=== PATIENT | female | born 1940 | race Caucasian/White ===

== ENCOUNTER → 2019-06-19 | Outpatient (CLI) | payer OTHER | LOC: SJCVC 11:25 | DX: R00.2 Palpitations (principal); I49.8 Other specified cardiac arrhythmias; E06.3 Autoimmune thyroiditis; G43.709 Chronic migraine without aura, not intractable, without status migrainosus; M19.90 Unspecified osteoarthritis, unspecified site; K21.9 Gastro-esophageal reflux disease without esophagitis; Z88.8 Allergy status to other drugs, medicaments and biological substances; Z79.899 Other long term (current) drug therapy ==

== ENCOUNTER → 2019-07-01 | Outpatient (CLI) | payer OTHER | LOC: SJCVCIMAG 10:19 | DX: I10 Essential (primary) hypertension (principal); E06.3 Autoimmune thyroiditis ==

== ENCOUNTER 2019-09-15 04:32 | Inpatient (IN) | payer OTHER ==
[~2019-09-15] VITALS: Ht 172.7 cm; Wt 111.7 kg
[2019-09-15 04:48] VITALS: BP 132/110
[2019-09-15 05:15] LABS: HEMATOCRIT 40.1 % (37.0-47.0); HEMOGLOBIN 13.3 gm/dL (12.0-15.0); MCH 31.4 pg (26.0-34.0); MCHC 33.1 g/dL (28.0-37.0); PLATELET COUNT 248 thou/uL (150-400); RBC 4.22 mil/uL (4.20-5.00); RDW 14.2 % (10.5-14.5); WBC 6.2 thou/uL (4.0-11.0)
[2019-09-15 05:31] LABS: ALBUMIN 2.5 g/dL (3.4-5.0); BUN 35 mg/dL (7-18); CALCIUM 9.4 mg/dL (8.5-10.1); CHLORIDE 87 mmol/L (98-107); CREATININE 0.8 mg/dL (0.6-1.0); GLUCOSE 92 mg/dL (74-106); SGOT 26 U/L (15-37); SGPT 14 U/L (30-65); SODIUM 140 mmol/L (136-145); TOTAL BILIRUBIN 0.5 mg/dL (<0.1-1.0); TOTAL PROTEIN 6.7 g/dL (6.4-8.2); TROPONIN-I <0.06 ng/mL (<0.06)
[2019-09-15 05:32] LABS: POTASSIUM 2.6 mmol/L (3.5-5.1)
[2019-09-15 05:33] LABS: CO2 > 45 mmol/L (21-32)
[2019-09-15 06:08] LABS: HCO3 55.1 mmol/L (22.0-26.0); PCO2 71.3 mmHg (35.0-45.0); PO2 101.1 mmHg (80.0-100.0); pH 7.506 (7.360-7.450); sO2 97.8 % (92.0-98.0)
[2019-09-15] MEDS ORDERED: IPRAT-ALBUT 0.5-3 ML INH (06:24)
[2019-09-15] MEDS ORDERED: KLOR-CON 10 ER10 MEQ PO (06:24)
[2019-09-15] MEDS ORDERED: [UNRECOGNIZED DRUG - OTHER] TOP (06:25)
[2019-09-15] MEDS ORDERED: KETOCONAZOLE15 GM TOP (06:26)
[2019-09-15] MEDS ORDERED: MUPIROCIN22 GM TOP (06:27)
[2019-09-15 07:17] LABS: ABSOLUTE NEUTROPHILS 2.6 thou/uL (1.4-8.2); METAMYELOCYTES 1 %; PROMYELOCYTES 1 %
--- NOTE | 2019-09-15 07:38 | NUR ---
SPOKE WITH PT'S TOAN LEHMAN AND UPDATED HIM ON PT STATUS
[2019-09-15 07:39] VITALS: BP 137/53
[2019-09-15 08:07] VITALS: BP 130/60
[2019-09-15 09:00] VITALS: BP 120/65
--- NOTE | 2019-09-15 11:26 | NUR ---
Patient admits from [facility]. She resides on 3rd floor with nursing assistance for all adls. Patient usu in wc and A/Ox2-3 per [facility]. She wears oxygen at facility usu at 2 liters. Sp with nephew and updated. Plan return to [facility] once stable. Updated facility.
[2019-09-15] MEDS ORDERED: KRISTALOSE20 GM PO (13:42)
[2019-09-15] MEDS ORDERED: RISPERDAL0.5 MG PO ×3 (13:42→13:47)
[2019-09-15] MEDS ORDERED: SERTRALINE HCL100 MG PO (13:44)
[2019-09-15] MEDS ORDERED: DEPAKOTE ER500 M1 PO (13:45)
[2019-09-15] MEDS ORDERED: FUROSEMIDE 40 M40 MG PO (13:48)
[2019-09-15] MEDS ORDERED: EUCERIN CREME57 GM TOP (13:49)
[2019-09-15] MEDS ORDERED: FEXOFENADINE-P1 EACH PO (13:50)
[2019-09-15] MEDS ORDERED: NORVASC 2.5 MG2.5 M1 PO (13:52)
[2019-09-15] MEDS ORDERED: RANITIDINE HCL150 M1 PO (13:54)
[2019-09-15] MEDS ORDERED: OXYBUTYNIN CHLO10 MG PO (13:54)
[2019-09-15] MEDS ORDERED: LOPRESSOR50 MG PO (13:56)
[2019-09-15] MEDS ORDERED: LUMIGAN2.5 M1 (13:57)
[2019-09-15] MEDS ORDERED: DEPAKOTE250 MG PO (14:05)
--- NOTE | 2019-09-15 16:42 | NUR ---
PT CARE ASSUMED APPROX 0900. ASSESSMENTS CHARTED. DENIES PAIN AND SOA. VSS. TOLERATING POC. BREATHING AND RESTING COMFORTABLY WITH O2 6LNC. FACILITY AND ER NURSE SPOKE TO PT'S DPOA REGARDING ADMISSION AND POC. CLINICAL UPDATE RECEIVED FROM LTC NURSE. PT PLEASANTLY CONFUSED. DR PAINTER APPROVED HOLDING BIPAP AT THIS TIME. PT CLINICALLY STABLE. CONFUSED. CLOSE TO NURSING STATION. REPLACED K+ THIS SHIFT AND ALSO DIURESED PT. WILL FOLLOW UP WITH K+ LEVEL. PLACED URINARY CATH WITHOUT ISSUE. NO DISTRESS NOTED.
[2019-09-15 18:12] VITALS: BP 120/65
[2019-09-15 18:38] LABS: BUN 29 mg/dL (7-18); CHLORIDE 92 mmol/L (98-107); CREATININE 0.7 mg/dL (0.6-1.0); GLUCOSE 125 mg/dL (74-106); POTASSIUM 3.5 mmol/L (3.5-5.1); SODIUM 138 mmol/L (136-145)
[2019-09-15 18:43] LABS: CO2 > 45 mmol/L (21-32)
[2019-09-15 19:57] VITALS: BP 111/52
[2019-09-16] VITALS (8 sets, daily range): BP systolic 108–138; BP diastolic 48–71
[2019-09-16 05:43] LABS: HEMATOCRIT 40.1 % (37.0-47.0); HEMOGLOBIN 13.2 gm/dL (12.0-15.0); MCH 31.8 pg (26.0-34.0); MCV 96.4 fL (80.0-100.0); RBC 4.16 mil/uL (4.20-5.00); RDW 14.5 % (10.5-14.5); WBC 6.9 thou/uL (4.0-11.0)
[2019-09-16 06:13] LABS: BUN 24 mg/dL (7-18); CHLORIDE 92 mmol/L (98-107); CREATININE 0.7 mg/dL (0.6-1.0); GLUCOSE 103 mg/dL (74-106); POTASSIUM 3.2 mmol/L (3.5-5.1); SODIUM 139 mmol/L (136-145)
[2019-09-16 06:17] LABS: CO2 > 45 mmol/L (21-32)
--- NOTE | 2019-09-16 07:34 | NUR ---
PATIENT IS VERY PLEASANT.CAN BE CONFUSED AT TIMES.O2 TITRATED DOWN TO 5L NC.RECEIVES BREATHING TREATMENT.MONITOR SHOWS SR.POC CONTINUED.
[2019-09-16 11:49] LABS: BE(vivo) 18.5 mmol/L (-2 to +3); HCO3 46.1 mmol/L (22.0-26.0); PO2 101.6 mmHg (80.0-100.0); sO2 97.6 % (92.0-98.0)
[2019-09-16 11:50] LABS: PCO2 67.9 mmHg (35.0-45.0)
[2019-09-16 13:29] LABS: HEMATOCRIT 40.4 % (37.0-47.0); HEMOGLOBIN 13.4 gm/dL (12.0-15.0); MCH 31.6 pg (26.0-34.0); MCHC 33.1 g/dL (28.0-37.0); MCV 95.4 fL (80.0-100.0); RBC 4.23 mil/uL (4.20-5.00); RDW 14.4 % (10.5-14.5); WBC 7.7 thou/uL (4.0-11.0)
[2019-09-16 13:41] LABS: INR 1.1; PROTIME 11.3 Seconds (9.3-11.4)
--- NOTE | 2019-09-16 15:11 | NUR ---
Updated [facility] with therapy documentation as well. They cont to report they can meet patients needs at [facility].
[2019-09-16 15:21] LABS: APTT 28.6 Seconds (24.5-32.8)
--- NOTE | 2019-09-16 18:49 | NUR ---
PT CARE ASSUMED APPROXIMATELY 0700. PT ASSESSMENTS CHARTED. PT MEDICATION CHARTED. PT aPTT DUE 2029, INITIAL 28.6. PT ORIENTED TO PLACE. BILAT DOPPLER LE PERFORMED. MILD OCCLUSION. PT REQUIRES FREQUENT ADJUSTMENT, SLIDES ONTO RIGHT SIDE.
[2019-09-17 03:39] VITALS: BP 126/61
--- NOTE | 2019-09-17 04:43 | NUR ---
PT AOX 2. VSS. NO FEVER. NO SOB. PT PERIODICALLY DESATS WHEN SLEEPING. O2 MAINTAINED BTWN 3-4 L. DENIES CHEST PAIN. NO EPISODE OF NAUSEA OR VOMITING REPORTED. HEPARIN GTT RUNNING AT 15ML/HR. Q2 TURNS. GIVEN BATH THIS MORNING. NO FURTHER CONERNS AT THIS TIME.
[2019-09-17 04:57] LABS: BUN 17 mg/dL (7-18); CALCIUM 8.6 mg/dL (8.5-10.1); CHLORIDE 91 mmol/L (98-107); CREATININE 0.7 mg/dL (0.6-1.0); GLUCOSE 105 mg/dL (74-106); POTASSIUM 3.4 mmol/L (3.5-5.1); SODIUM 137 mmol/L (136-145)
[2019-09-17 05:20] LABS: HEMATOCRIT 37.1 % (37.0-47.0); HEMOGLOBIN 12.4 gm/dL (12.0-15.0); MCH 32.1 pg (26.0-34.0); MCHC 33.4 g/dL (28.0-37.0); MCV 96.1 fL (80.0-100.0); RBC 3.86 mil/uL (4.20-5.00); RDW 14.3 % (10.5-14.5); WBC 8.2 thou/uL (4.0-11.0)
[2019-09-17 06:31] LABS: CO2 > 45 mmol/L (21-32)
[2019-09-17 08:07] VITALS: BP 145/81
[2019-09-17 11:43] VITALS: BP 149/84
[2019-09-17 15:25] LABS: URINE BILIRUBIN NEGATIVE (Negative); URINE BLOOD 2+ (Negative); URINE CLARITY CLEAR; URINE COLOR YELLOW; URINE GLUCOSE-RANDOM* NEGATIVE (Negative); URINE KETONES NEGATIVE (Negative); URINE LEUKOCYTES NEGATIVE (Negative); URINE NITRITE NEGATIVE (Negative); URINE PROTEIN (DIPSTICK) NEGATIVE (Negative)
[2019-09-17 15:31] LABS: SSA (PROTEIN CONFIRMATORY) NEGATIVE (Negative)
[2019-09-17 15:57] LABS: SQUAMOUS 0-3 Few /LPF (0-3)
[2019-09-17 15:58] LABS: BACTERIA None Seen /HPF (None Seen); CRYSTALS None Seen /LPF (None Seen); URINE RBC 0-2 Rare /HPF (0-2); URINE WBC None Seen /HPF (0-5)
[2019-09-17 16:49] VITALS: BP 151/96
--- NOTE | 2019-09-17 17:04 | NUR ---
PT CARE ASSUMED APPROX 0700. ASSESSMENTS CHARTED. PT DENIES PAIN AND SOA. FREQUENT O2 TITRATIONS AND CHANGE IN LOC COMMUNICATED TO DR HAQ AND KO. CTA CHEST, CT HEAD AND UA COMPLETED. WILL F/U WITH RESULTS. PT TO START BIPAP THIS NIGHT. ORDERS PER MATHEUS. CLINICAL UPDATE GIVEN TO DOMINIK JOYA. TURNING PT Q2 HRS AND PRN. K+ REPLACED. APPETITE FAIR. WILL PASS ON IN REPORT THAT PT MEETS CRITERIA FOR URINARY CATH REMOVAL AND EXTERNAL CATH PLACEMENT. NO DISTRESS NOTED AT THIS TIME. PT TOLERATING POC.
--- NOTE | 2019-09-17 17:06 | NUR ---
PT'S HEP GTT TITRATION DELAYED DUE TO DELAY IN APTT RESULTING. COLLECTED AT 1350 BUT DID RESULT UNTIL 1700. WILL TITRATE GTT BASED ON RESULTS.
[2019-09-17 20:23] VITALS: BP 105/56
[2019-09-18 00:03] VITALS: BP 130/62
--- NOTE | 2019-09-18 03:08 | NUR ---
ASSUMED PT CARE AROUND 1930. AXOX1, PLEASANTLY CONFUSED. HEPARIN DRIP ADJUSTED AND CHARTED. NEW DRAW ORDER PER PROTOCOL. O2 MANAGED CLOSELY BY RT. EARLIER LOW BP AND PULSE NOTED, REPORTED TO ALTA ÁLVAREZ HVAC SALES ENGINEER FOR AND RECIEVED AN ORDER TO HOLD 2100 LOPRESSOR. FREQUENT VISUAL CHECKS FOR NEEDS. NO S/S ACUTE DISTRESS NOTED OR REPORTED AT THIS TIME. WILL CONT TO MONITOR FOR ANY CHANGES IN CONDITION.
[2019-09-18 03:50] VITALS: BP 124/63
[2019-09-18 07:37] LABS: HEMATOCRIT 41.3 % (37.0-47.0); HEMOGLOBIN 13.8 gm/dL (12.0-15.0); MCH 31.8 pg (26.0-34.0); MCHC 33.5 g/dL (28.0-37.0); MCV 95.1 fL (80.0-100.0); RBC 4.35 mil/uL (4.20-5.00); RDW 14.4 % (10.5-14.5); WBC 7.4 thou/uL (4.0-11.0)
[2019-09-18 07:40] VITALS: BP 116/58
[2019-09-18 07:47] LABS: ANION GAP < 0 mmol/L (7-16); BUN 12 mg/dL (7-18); CALCIUM 9.4 mg/dL (8.5-10.1); CHLORIDE 92 mmol/L (98-107); CO2 43 mmol/L (21-32); CREATININE 0.5 mg/dL (0.6-1.0); GLUCOSE 92 mg/dL (74-106); POTASSIUM 3.5 mmol/L (3.5-5.1); SODIUM 134 mmol/L (136-145)
[2019-09-18 12:00] VITALS: BP 117/63
--- NOTE | 2019-09-18 14:02 | NUR ---
FAXED CLINICAL UPDATE TO [facility] SPOKE WITH DAVID IN ADM. SHE RECEIVED UPDATE AND SAID THEY CAN TAKE PT OVER THE WEEKEND IF NEEDED. ALSO THEY CAN SUPPLY PT WITH A BIPAP AT FACILITY IF NEEDED. DP TO FOLLOW.
--- NOTE | 2019-09-18 15:40 | 2DMMODE ---
[facility] [place] [address] 2 D/M-MODE ECHOCARDIOGRAM Name: GAGE CHACON Room #: 216-P ADM IN M.R.#: [id number] Admission: 09/15/19 Attend Phys: Kaden Vaz MD Discharge: Date of : 38 Report #: [id number] THIS REPORT FOR: cc: Mikki Stark,Giorgio Copeland MD [facility] ~ APPROVED REPORT Study performed: 09/18/2019 14:53:17 EXAM: Limited 2D, Doppler, and color-flow Echocardiogram Patient Location: Bedside Room #: 216 Status: routine BSA: 2.25 HR: 62 bpm BP: 117/63 mmHg Rhythm: NSR Other Information Study Quality: Adequate Indications Limited echo. SOB, Acute PE. (Complete echo done 07/01/19) 2D Dimensions RVDd: 37.88 mm LVOT Diam: 20.11 (18-24mm) Aortic Valve AoV Peak Edmundo.: 2.34 m/s AO Peak Gr.: 21.87 mmHg LVOT Max P.25 mmHg AO Mean Gr.: 12.65 mmHg AO V2 Mean: 1.70 m/s LVOT Max V: 1.03 m/s AO V2 VTI: 50.20 cm MERLIN Vmax: 1.40 cm2 Tricuspid Valve TR Peak Edmundo.: 2.80 m/s RAP Estimate: 5.00 mmHg TR Peak Gr.: 31.00 mmHg PA Pressure: 36.00 mmHg Left Ventricle The left ventricle is normal size. There is normal LV segmental wall motion. Left ventricular systolic function is normal. LVEF is [facility] [address] [place] [address] 2 D/M-MODE ECHOCARDIOGRAM Name: GAGE CHACON Room #: 216-P [facility] IN ..#: [id number] Admission: 09/15/19 Attend Phys: Kaden Vaz, Discharge: Date of : 38 Report #: [id number] 60-65%. Right Ventricle The right ventricle is normal size. The right ventricular systolic function is normal. Atria Left atrium is dilated. Right atrium is at the upper limits of normal. Aortic Valve The aortic valve is mildly calcified. Mild aortic regurgitation There is mild valvular aortic stenosis. Calculated aortic valve area is 1.4 cm2 with maximum pressure gradient of 22 mmHg and mean pressure gradient of 13 mmHg. Mitral Valve Moderate mitral annular calcification. There is no mitral valve regurgitation noted. Tricuspid Valve The tricuspid valve is normal in structure. Mild tricuspid regurgitation. Estimated PAP is 35-40mmHg. Great Vessels IVC is normal in size and collapses >50% with inspiration. Pericardium There is no pericardial effusion. <Conclusion> Left ventricular systolic function is normal. There is normal LV segmental wall motion. LVEF is 60-65%. Both atria are dilated. There is mild valvular aortic stenosis, no insufficiency. Calculated aortic valve area is 1.4 cm2 (maximum pressure gradient of 22 mmHg, mean pressure gradient of 13 mmHg). Moderate mitral annular calcification. No mitral valve regurgitation Mild tricuspid regurgitation. Estimated pulmonary artery pressure of [facility] [address] [place] [address] 2 D/M-MODE ECHOCARDIOGRAM Name: INESGAGE Room #: 216-P [facility] IN [facility].#: [id number] Admission: 09/15/19 Attend Phys: Kaden Vaz, Discharge: Date of : 38 Report #: [id number] 35-40mmHg. There is no pericardial effusion. <ELECTRONICALLY SIGNED> By: Giorgio Heller MD, FACC 09/18/19 1539 1539 153 Giorgio Heller MD, FACC /INF
--- NOTE | 2019-09-18 15:53 | NUR ---
ASSUMED CARE PT SHIFT CHANGE. ASSESSMENTS CHARTED. MEDS GIVEN PER AUG. PT ALERT AND ORIENTED TO SELF, PLEASANTLY CONFUSED AT TIMES. O2 SATS WNL ON VENTIMASK 35%, RT SWITCHED PT TO NC 2L, PT TOLERATING WELL, SATS WNL. ECHO ORDERED/COMPLETED THIS SHIFT- REFER TO RESULTS. APPETITE ADEQUATE THROUGHOUT DAY. PT CURRENTLY RESTING IN BED WITH NO APPARENT NEEDS AT THIS TIME. WILL CONTINUE TO MONITOR AND FOLLOW POC.
[2019-09-18 16:00] VITALS: BP 111/66
[2019-09-18 19:16] VITALS: BP 131/60
[2019-09-19] VITALS (7 sets, daily range): BP systolic 105–127; BP diastolic 60–75
--- NOTE | 2019-09-19 04:21 | NUR ---
PT ORIENTED TO SELF. PLEASANTLY CONFUSED. UNABLE TO TOLERATE BIPAP OVERNIGHT. PT PUT ON 2L NC, SATS STABLE. DENIES PAIN. NO CHEST PAIN OR NAUSEA REPORTED. WILL CONTINUE TO MONITOR.
[2019-09-19 05:22] LABS: HEMATOCRIT 37.2 % (37.0-47.0); HEMOGLOBIN 12.6 gm/dL (12.0-15.0); MCH 31.9 pg (26.0-34.0); MCHC 33.7 g/dL (28.0-37.0); MCV 94.5 fL (80.0-100.0); RBC 3.94 mil/uL (4.20-5.00); RDW 14.4 % (10.5-14.5); WBC 8.6 thou/uL (4.0-11.0)
[2019-09-19 05:28] LABS: CALCIUM 8.7 mg/dL (8.5-10.1); CREATININE 0.5 mg/dL (0.6-1.0); POTASSIUM 3.2 mmol/L (3.5-5.1)
--- NOTE | 2019-09-19 12:24 | EKG ---
[facility] [place] [address] ELECTROCARDIOGRAM REPORT Name: GAGE CHACON Room #: 216-P ADM IN M.R.#: [id number] Admission: 09/15/19 Attend Phys: Kaden Vaz MD Discharge: Date of : 38 Report #: [id number] THIS REPORT FOR: cc: Mikki Stark,Mikki Mendez,Giorgio Diaz MD [facility] ~ THIS REPORT FOR: //name// [facility] Test Date: 2019-09-15 Test Time: 15:50:15 Pat Name: GAGE CHACON Department: Room: 216 P Gender: F Designer/Writer: Carlos GARRISON : 1940 Requested By: Candice Silva Order Number: [id number] MD: Giorgio Heller Measurements Intervals [place] Rate: 63 P: 68 SD: 187 QRS: -22 QRSD: 121 T: -25 QT: 468 QTc: 480 Interpretive Statements Sinus rhythm Abnormal T, consider ischemia, anterior leads No previous ECG available for comparison Electronically Signed On 09-16-2019 7:55:55 CDT by Giorgio Heller [email or web address] <ELECTRONICALLY SIGNED> By: Giorgio Heller MD, FAC 09/16/19 0755 1550 1550 Giorgio Heller MD, [facility] /EPI
--- NOTE | 2019-09-19 14:43 | NUR ---
Possible dc back to [facility] shelter care this weekend. Pt did not tolerate bipap but will b on 2liters of O2. She is being switched from heprin gtt to eloquis. Nephew and admissions at [facility] updated. Both agreeable to dc over the weekend if ready. Weekend nurse will need to call [facility] with report and fax orders as well as notify her nephew of dc. Transport can be arranged and vouchered by through [employer] for stretcher. Chart copy to be sent with the pt. OP [phone], fax [phone] [employer] [phone]
--- NOTE | 2019-09-19 18:46 | NUR ---
PT CARE ASSUMED APPROXIMATELY 0700. PT ASSESSMENTS CHARTED. PT MEDICATION CHARTED. PT HEPARIN D/C'D AT 1240 AFTER APIXIBAN 1140. VSS. PT DENIES PAIN.
[2019-09-20 04:45] VITALS: BP 123/61
--- NOTE | 2019-09-20 06:17 | NUR ---
ASSESSMENTS CHARTED, MEDS GIVEN CHARTED. PATIENT RESTING IN BED DURING SHIFT. BRAVO IN PLACE AND PATENT. ALERT TO SELF, SINUS RHYTHM SINUS GRAY ON TELEMETRY DURING SHIFT. ON 2 LITERS WHILE AWAKE VIA NASAL CANNULA, DURING SLEEP SHE HAS BEEN ON BIPAP WITH OXYGEN BLEED IN. PATIENT HAS BEEN TURNED CHARTED BY AIDE. DENIED PAIN DURING SHIFT, FALL PRECAUTIONS IN PLACE DURING SHIFT.
[2019-09-20 07:40] VITALS: BP 109/53
[2019-09-20 09:08] LABS: ANION GAP < 0 mmol/L (7-16); BUN 12 mg/dL (7-18); CALCIUM 8.9 mg/dL (8.5-10.1); CHLORIDE 93 mmol/L (98-107); CO2 42 mmol/L (21-32); CREATININE 0.5 mg/dL (0.6-1.0); GLUCOSE 97 mg/dL (74-106); MAGNESIUM 2.1 mg/dL (1.8-2.4); SODIUM 134 mmol/L (136-145)
[2019-09-20 09:18] LABS: POTASSIUM 2.9 mmol/L (3.5-5.1)
--- NOTE | 2019-09-20 09:23 | NUR ---
ASSUMED CARE OF PT AT SHIFT CHANGE, COLD, ROOM AT 65, GAVE HER A WARM BLANKET, CONTACTED PHYSICIAN TO SEE IF I TX YESTERDAYS ELECTROLYTES OR HE'LL ORDER NEW DRAWN, LATTER CHOSEN. CRITICAL K+, FOLLOWED PROTOCOL. PT GIVING ONE WORDS ANSWERS, FINANCIAL ADMINISTRATIVE ASSISTANT REPORTS SPEECH SEEMS INCOMPREHENSIBLE. SHE STATES SHES TIRED. ON BIPAP, REPORTS OF 2L DAY USE. WILL CONTINUE TO MONITOR. ENCOURAGED PT TO USE CALL LIGHT FOR NEEDS AND WARMED UP ROOM.
[2019-09-20 12:00] VITALS: BP 128/62
[2019-09-20 16:30] VITALS: BP 112/63
[2019-09-20 17:04] LABS: CALCIUM 8.9 mg/dL (8.5-10.1); CREATININE 0.5 mg/dL (0.6-1.0); POTASSIUM 3.2 mmol/L (3.5-5.1)
[2019-09-20 19:38] VITALS: BP 106/54
[2019-09-21 01:12] LABS: CALCIUM 8.8 mg/dL (8.5-10.1); CREATININE 0.5 mg/dL (0.6-1.0); POTASSIUM 3.4 mmol/L (3.5-5.1)
[2019-09-21 05:07] VITALS: BP 123/65
[2019-09-21 07:30] VITALS: BP 114/55
--- NOTE | 2019-09-21 08:11 | NUR ---
ASSUME CARE 1900. PT/VITALS STABLE. DENIES ANY PAIN. POOR TOLERANCE TO ACTIVITY. PT IS NON AMBULATORY. NO DISTRESS NOTED DURING SHIFT. ADEQUATE REST. A/O X 4. ASSESSMENT CHARTED. PROGRESSING WELL WITH POC. SR/SB ON MONITOR. PLAN IS TO CONTINUE WITH APIXABAN BID FOR PE/DVT. WILL CONTINUE TO MONITOR AND FOLLOW WITH POC
[2019-09-21 11:30] VITALS: BP 114/49
[2019-09-21 16:30] VITALS: BP 107/65
[2019-09-21 19:53] VITALS: BP 100/57
--- NOTE | 2019-09-21 20:45 | NUR ---
RECEIVED PT'S CARE AROUND 0740; PT. ON BED; RESTING WITH EYES CLOSED; O2 SAT ABOVE 97%; DURING AM ASSESSMENT PT. ALERT TO PERSON, SITUATION, TIME NOT PLACE; NO C/O PAIN; AM MEDICATION GIVEN; C/O ABDOMINAL DISCOMFORT DUE TO NOT ABLE TO HAVE A BM; PHYSICIAN NOTIFIED; ORDERS ON PLACE; MIRALAX GIVEN; PT. ABLE TO HAVE LARGE BM DURING THE AFTERNOON; PASSING GAS; TURNED FROM SIDE TO SIDE THROUGH THE DAY; IV D/C X2; IV TEAM STARTED NEW IV; D/C BRAVO AT 1410; PT. ABLE TO VOID 150 ML; PASSED ON REPORT; ASSESSMENT CHARGED; FOLLOWING POC; PASSED ON REPORT;
[2019-09-22 04:28] VITALS: BP 129/55
--- NOTE | 2019-09-22 04:50 | NUR ---
PT LYING IN BED. TURNING FOR COMFORT. DENIES PAIN. INCONTINENT. VERY RESTFUL NIGHT. CALL LIGHT WITHIN REACH. FREQUENT OBSERVATION. POSSIBLE RETURN TO [facility] 09/21.
[2019-09-22 05:59] LABS: HEMATOCRIT 37.1 % (37.0-47.0); HEMOGLOBIN 12.4 gm/dL (12.0-15.0); MCH 31.9 pg (26.0-34.0); MCHC 33.4 g/dL (28.0-37.0); MCV 95.5 fL (80.0-100.0); RBC 3.89 mil/uL (4.20-5.00); RDW 14.5 % (10.5-14.5); WBC 6.4 thou/uL (4.0-11.0)
[2019-09-22 08:00] VITALS: BP 109/87
[2019-09-22] MEDS ORDERED: ELIQUIS5 MG PO (11:11)
--- NOTE | 2019-09-22 14:21 | NUR ---
ORIENTED TO SELF ONLY. DR. HAQ DISCHARGING BACK TO [facility]. AWAITING OXIMETRY AND TRANSPORTATION ARRANGEMENT. SR PER TELE. TURN Q2. ASSIST FEED. WILL CONTINUE TO FOLLOW CLOSELY.
--- NOTE | 2019-09-22 15:46 | NUR ---
plan for patient to dc today to [facility] with need for oxygen. Rec prescription and RT assessment. Faxed to [facility] with pertinent information. Sp with Tyron at [facility] to alert of dc to [facility] at 1700. Chart copy ordered. Number for report in chart. Sp with control panel operator crude unit to alert of time to tell RN. DC process planner to arrange transport with oxygen and notify family
--- NOTE | 2019-09-22 16:18 | NUR ---
PT DISCHARGING TODAY TO [facility] FAXED DC ORDERS/SUMMARY RECEIVED CONFIRMATION AND ARRANGED TRANSPORT WITH [facility] FOR 1700 TODAY. NOTIFIED PT'S NEPHEW (TOAN) OF DC AND TIME OF TRANSPORT. UNIT NOTIFIED AND CHART COPY PER US. RN TO CALL REPORT TO [phone].
[2019-09-22 17:09] VITALS: BP 129/73
--- NOTE | 2019-09-22 18:05 | NUR ---
INEXPLICABLY, HAS BEEN ORDERED FOR TRANSPORT FOR THIS PATIENT. SHE CANNOT BE TRANSPORTED BY [facility]; MUST HAVE GURNEY FOR THIS BED-BOUND PATIENT. THE NATALIA OF THIS ERRONEOUS IS UNKNOWN TO ME.
[2019-09-22 20:20] VITALS: BP 115/9
--- NOTE | 2019-09-24 07:10 | HC ---
[facility] [place] [address] CONSULTATION Name: GAGE CHACON Room #: 216-[facility] IN M.R.#: [id number] Admission: 09/15/19 Attend Phys: Kaden Vaz MD Discharge: 09/22/19 Date of : 38 Report #: [id number] THIS REPORT FOR: cc: Mikki Stark,Eros Saavedra MD ~ CC: Syed Stark DATE OF SERVICE: 09/16/2019 REASON FOR CONSULTATION: Elevated serum bicarbonate. REASON FOR PRESENTATION: Shortness of breath. HISTORY OF PRESENT ILLNESS: This is a lady with a cognitive impairment was not able to provide me with the details of her history of present illness. She is a DNR patient. She is maintained on oxygen 2 liters at a nursing facility. She was ruled out for COVID-19 infection few days ago; however, she continued to have shortness of breath and nursing facility decided to send her to our hospital for further evaluation and management. On presentation, she was found to have a serum bicarbonate greater than 45 with hypokalemia and a pH of 7.5 and a pCO2 of 71. I am not able to obtain any details from the patient regarding her past medical history. I had reviewed what is available in our medical chart. Unfortunately, there is not much other than what is mentioned in the medical chart. She carries a diagnosis of anxiety, depression, hyperlipidemia, hypertension and bipolar disorder. It does look like that she has cognitive impairments. FAMILY HISTORY: Unobtainable given the patient's current mental status. ALLERGIES: TETANUS TOXOID. SOCIAL HISTORY: She is a care home resident. No other details available. MEDICATIONS: 1. Metoprolol. 2. Depakote. 3. Furosemide. 4. Amlodipine. 5. Risperdal. REVIEW OF SYSTEMS: Unobtainable given the patient's current mental status. PHYSICAL EXAMINATION: [facility] [address] [place] [address] CONSULTATION Name: INESFUNK Room #: 216-[facility] IN M.R.#: [id number] Admission: 09/15/19 Attend Phys: Kaden Vaz MD Discharge: 09/22/19 Date of : 38 Report #: [id number] VITAL SIGNS: Temperature 36.7, pulse rate is 76, respiratory rate is 14, and blood pressure is 124/61. HEAD AND NECK: No jugular venous distention. CHEST: No crackles. CARDIOVASCULAR: No rub detected. ABDOMEN: Soft. EXTREMITIES: Lower extremities, __ stasis changes with very mild edema. LABORATORY DATA: Laboratory values reviewed. pH 7.5, pCO2 of 71. Sodium is 139, potassium 3.2, chloride 92, bicarbonate 45, and creatinine 0.7. ASSESSMENT, IMPRESSION AND PLAN 1. Combined metabolic alkalosis with respiratory compensation for her CO2 retention contributing to the high degree of or the elevation of her carbon dioxide. This is exacerbated by her hypokalemia. Metabolic alkalosis will not resolve until we rectify her potassium. 2. Might use of acetazolamide down the road. 3. She needs her carbon dioxide to be brought down by any means. 4. Discontinue diuretics as this is contributing to her metabolic alkalosis. 5. No further renal recommendations. <ELECTRONICALLY SIGNED> By: Eros Euceda MD 09/24/19 0710 0847 0916 Eros Euceda MD /nt
== END 2019-09-22 22:09 | DRG 175 ==
LOC: ER 04:32 → EROBS 06:01 → 2N 06:01
PROVIDERS: Emergency Medicine Emergency Medical Services; Hospitalist; Internal Medicine Pulmonary Disease; ADMIT Hospitalist
PROC: 5A09357 Assistance with Respiratory Ventilation, Less than 24 Consecutive Hours, Continuous Positive Airway Pressure (ICD-10-PCS; principal; 2019-09-15)
PROC: 5A09357 Assistance with Respiratory Ventilation, Less than 24 Consecutive Hours, Continuous Positive Airway Pressure (ICD-10-PCS; 2019-09-18)
PROC: 5A09357 Assistance with Respiratory Ventilation, Less than 24 Consecutive Hours, Continuous Positive Airway Pressure (ICD-10-PCS; 2019-09-20)
DX: I26.99 Other pulmonary embolism without acute cor pulmonale (principal); J96.22 Acute and chronic respiratory failure with hypercapnia; G93.41 Metabolic encephalopathy; J96.21 Acute and chronic respiratory failure with hypoxia; I82.403 Acute embolism and thrombosis of unspecified deep veins of lower extremity, bilateral; I50.30 Unspecified diastolic (congestive) heart failure; E87.3 Alkalosis; E46 Unspecified protein-calorie malnutrition; Z66 Do not resuscitate; E87.6 Hypokalemia; F31.9 Bipolar disorder, unspecified; K58.9 Irritable bowel syndrome, unspecified; F41.9 Anxiety disorder, unspecified; K57.90 Diverticulosis of intestine, part unspecified, without perforation or abscess without bleeding; K21.9 Gastro-esophageal reflux disease without esophagitis; E78.00 Pure hypercholesterolemia, unspecified; H40.9 Unspecified glaucoma; F03.90 Unspecified dementia, unspecified severity, without behavioral disturbance, psychotic disturbance, mood disturbance, and anxiety; I11.0 Hypertensive heart disease with heart failure; E66.9 Obesity, unspecified; Z20.828 Contact with and (suspected) exposure to other viral communicable diseases; Z88.8 Allergy status to other drugs, medicaments and biological substances; Z99.81 Dependence on supplemental oxygen; Z79.899 Other long term (current) drug therapy; Z68.37 Body mass index [BMI] 37.0-37.9, adult
CPT/HCPCS: 10081

== ENCOUNTER 2020-11-04 19:34 | Inpatient (IN) | payer OTHER ==
[~2020-11-04] VITALS: Ht 152.4 cm; Wt 107.9 kg
[~2020-11-04 19:34] MED LIST: DEPAKOTE ER500 M1 PO; DEPAKOTE250 MG PO; ELIQUIS5 MG PO; EUCERIN CREME57 GM TOP; FEXOFENADINE-P1 EACH PO; FUROSEMIDE 40 M40 MG PO; IPRAT-ALBUT 0.5-3 ML INH; KETOCONAZOLE15 GM TOP; KLOR-CON M2020 MEQ PO; KRISTALOSE20 GM PO; LOPRESSOR50 MG PO; LUMIGAN2.5 M1; MUPIROCIN22 GM TOP; NORVASC 2.5 MG2.5 M1 PO; OXYBUTYNIN CHLO10 MG PO; RANITIDINE HCL150 M1 PO; RISPERDAL0.5 MG PO; SERTRALINE HCL100 MG PO; [UNRECOGNIZED DRUG - OTHER] TOP
[2020-11-04 19:37] VITALS: BP 124/61
[2020-11-04 21:21] LABS: ABSOLUTE NEUTROPHILS 5.8 thou/uL (1.4-8.2); BASOPHILS 0.3 % (0.0-2.0); EOSINOPHILS 1.4 % (0.0-3.0); HEMATOCRIT 33.6 % (37.0-47.0); HEMOGLOBIN 11.5 gm/dL (12.0-15.0); LYMPHOCYTES 25.4 % (24.0-44.0); MCH 32.5 pg (26.0-34.0); MCHC 34.1 g/dL (28.0-37.0); MCV 95.6 fL (80.0-100.0); MONOCYTES 12.6 % (1.0-8.0); PLATELET COUNT 256 thou/uL (150-400); POLYS 60.3 % (36.0-66.0); RBC 3.52 mil/uL (4.20-5.00); RDW 14.6 % (10.5-14.5); WBC 9.6 thou/uL (4.0-11.0)
[2020-11-04 22:11] LABS: CALCIUM 8.5 mg/dL (8.5-10.1); CREATININE 0.8 mg/dL (0.6-1.0); POTASSIUM 4.5 mmol/L (3.5-5.1)
[2020-11-04 22:15] LABS: APTT 26.3 Seconds (24.5-32.8); PROTIME 10.9 Seconds (10.5-12.1)
[2020-11-04 23:16] VITALS: BP 132/66
[2020-11-04] MEDS ORDERED: ELIQUIS5 MG PO (23:39)
[2020-11-04] MEDS ORDERED: DEPAKOTE ER500 M1 PO (23:40)
[2020-11-04] MEDS ORDERED: KRISTALOSE20 GM PO (23:42)
[2020-11-05 07:25] VITALS: BP 127/73
--- NOTE | 2020-11-05 07:47 | NUR ---
PT ADMITTED TO UNIT APPROX 2349. UNABLE TO OBTAIN CONSENTS OR HISTORY. PT SLEEPING, AROUSING WITH CONFUSION AND AGGRESSION. PT DENIES PAIN AND SOB WHILE ON ROOM AIR. PT NPO AT MIDNIGHT. PT INCONTINENT OF BOWEL AND BLADDER, REFUSING REPOSITIONING. SENSATION INTACT, CAPILLARY REFILL LESS THAN 3SEC, AND PERIPHERAL PULSES PALPABLE IN ALL EXTREMITIES. PT ENCOURAGED TO NOTIFY STAFF FOR ALL NEEDS, CALL LIGHT WITHIN REACH, BED ALARM ON, BED LOCKED IN LOWEST POSITION, FREQUENT MONITORING WILL CONTINUE.
--- NOTE | 2020-11-05 14:21 | NUR ---
ASSESSMENT: CM REVIEWED CHART AND SPOKE WITH ATTENDING. PT IS SLEEPING SOUNDLY AND UNABLE TO ANSWER QUESTIONS AT THIS TIME. PT IS FROM [facility]. PT WAS ADMITTED DUE TO DISPLACED FIBULA FX AFTER A FALL. AWAITING ORTHO CONSULT AT THIS TIME TO DETERMINE PLANS. CM SPOKE WITH ATTENDING WHO REPORTS PT MAY REQUIRE SNF PENDING THE PLANS. AWAITING FURTHER RECOMMENDATIONS PT HAS NOT WORKED WITH THERAPY AND AWAITING ORTHO. CM FAXED UPDATED CLINICAL TO [facility] AND LEFT VM WITH DOMINIQUE. CM ALSO SPOKE WITH NEPHEW JACKI JOYA/DOMINIK TO UPDATE. HE IS HOPEFUL SHE WILL BE ABLE TO RETURN TO [facility]. CM WILL CONTINUE TO FOLLOW TO ASSIST NEEDED.
[2020-11-05 15:55] VITALS: BP 147/80
--- NOTE | 2020-11-05 16:48 | NUR ---
Received awake on bed. On nothing per orem for possible surgery today- mouth swabs provided. Vital signs stable. On MS, not on telemetry; no complains and signs of chest pain, crushing sensation and heaviness. Assisted in ADLs. On O2 at 3lpm via nasal cannula. Incontinent of urine and bladder, checked regularly and changed as needed; ext female vázquez in place- output measured and recorded accordingly. Pt turned on her sides regularly, may refuse at times; falls bundle in place. With L Leg fracture- cast in place, able to feel tactile stimulation. With consult to Dr Mccray- called answering service 2x- still a/w call back re: plan for surgery; covid swab done. With SL at R FA- intact. No nausea, no vomiting and no abdominal pain noted. Pt seen and examined by Dr Campos this AM, verified w/him- to keep pt on NPO. Pt's DOMINIK José called at 1211pm- update given, informed him still a/w for ortho surgeon's rounds re: plan of care and will call him for update. Dr Campos informed re: med rec done, for review; pt still on NPO and no IVF prescribed- physician acknowledged but no orders obtained. Followed up with Dr Campos this PM that pt still on NPO and ortho still hasn't seen pt- may have regular diet for dinner then NPO at midnight again; called Dr Mccray's answering service this PM again to f/u- a/w call back. To continue monitoring patient.
[2020-11-05 19:25] VITALS: BP 121/66
--- NOTE | 2020-11-06 02:49 | NUR ---
PT IS A/O X3 AND IS ON BEDREST. VSS AFEBRILE. ROOM AIR. MEDSURG STATUS NO TELE. IS INCONTINENT OF BOWEL AND BLADDER. FEMALE EXTERNAL CATHETER IN PLACE AND DRAINING DARK YELLOW URINE. DRSG TO LEG IS C/D/I AND IS ELEVATED ON PILLOWS. MEDICATIONS GIVEN CRUSED IN APPLE SAUCE. IS CURRENTLY NPO SINCE MIDNIGHT AWAITING PROCEDURE IN THE AM. DRY REDNESS NOTED TO PT FACE AND AROUND MOUTH AREA. SMALL BRUSING NOTED TO RIGHT LOWER LEG THAT APPEARS TO BE ELEVATED. FALL PRECAUTIONS IN PLACE, CALL LIGHT IS WITHIN REACH. WILL CONTINUE TO MONITOR.
[2020-11-06 05:40] VITALS: BP 123/61; BP 174/70
[2020-11-06 08:56] VITALS: BP 134/74
--- NOTE | 2020-11-06 14:41 | NUR ---
ASSUMED CARE OF PT AT 0700 THIS MORNING. PT WAS A/OX3 DURING REPORT. PT HAS HEMO ON RIGHT LOWER LEG WHICH WAS ADDRESSED THIS MORNING TO THE HCP. O2 AT 3L/H WITH O2SAT 94%. LUNGS DEMINISHED, SKIN INTACT WITH REDNESS TO FACE AND ALSO SEVERE REDNESS TO BUTTOCKS. ASSESSMENTS WERE OTHERWISE UNREMARKABLE, VSS, CALL LIGHT AND OTHER NEEDS ARE WITHIN REACN. MEDS AND TX GIVEN NEEDED AND SCHEDULED.
[2020-11-06 15:36] VITALS: BP 130/64
[2020-11-06 19:05] VITALS: BP 120/78
--- NOTE | 2020-11-07 00:35 | NUR ---
PT LYING IN BED. DENIES NEED FOR PAIN MEDICATION. EXTERNAL FEMALE CATH IN PLACE. RESTING COMFORTABLY. FREQUENT OBSERVATION.
[2020-11-07 04:49] VITALS: BP 126/66
[2020-11-07 09:21] VITALS: BP 135/68
[2020-11-07 19:35] VITALS: BP 151/79
--- NOTE | 2020-11-08 02:41 | NUR ---
ASSUMED CARE OF PT AT 1900. PT IS A/O X3 AND IS ON BEDREST. 2.5 LITERS NC. MEDSURG NO TELE. BOOT PLACED TO LEFT LE IS IN PLACE AND ELEVATED ON PILLOW. DENIES C/O PAIN TO LE BUT DOES C/O OF FEELING HOT AND SWEATY. TEMP 99.3 AT START OF SHIFT. PRN TYLENOL PROVIDED. C/O NAUSEA AND STOMACH PAIN. PRN NAUSEA MEDICATION GIVEN DIRECTED. FEMALE EXTERNAL CATHETER IN PLACE AND DRAINING YELLOW/ORANGE URINE WITH A FOUL ODOR. NO BM THIS SHIFT. FALL PRECAUTIONS IN PLACE, CALL LIGHT IS WITHIN REACH. BARRIER CREAM APPLIED TO BOTTOM. PT IN ROOM NEAR NURSES STATION WITH FREQUENT CHECKS. WILL CONTINUE TO MONITOR.
[2020-11-08 03:34] VITALS: BP 148/83
[2020-11-08 07:34] VITALS: BP 151/84
--- NOTE | 2020-11-08 16:44 | NUR ---
RN gave report to [facility] to ZAHRA Cruz. Paper work sent with patient to [facility].
== END 2020-11-08 16:21 | DRG 563 ==
LOC: ER 19:34 → 4S 22:20 → EROBS 22:20 → 4S 11-05 00:41
PROVIDERS: Emergency Medicine; ADMIT Hospitalist; ATTEND Hospitalist
PROC: 2W3RX1Z Immobilization of Left Lower Leg using Splint (ICD-10-PCS; principal; 2020-11-04)
DX: S82.432A Displaced oblique fracture of shaft of left fibula, initial encounter for closed fracture (principal); K21.9 Gastro-esophageal reflux disease without esophagitis; E78.5 Hyperlipidemia, unspecified; F31.9 Bipolar disorder, unspecified; F41.9 Anxiety disorder, unspecified; K57.90 Diverticulosis of intestine, part unspecified, without perforation or abscess without bleeding; E78.00 Pure hypercholesterolemia, unspecified; K58.9 Irritable bowel syndrome, unspecified; M19.90 Unspecified osteoarthritis, unspecified site; I11.0 Hypertensive heart disease with heart failure; I50.9 Heart failure, unspecified; W06.XXXA Fall from bed, initial encounter; F03.90 Unspecified dementia, unspecified severity, without behavioral disturbance, psychotic disturbance, mood disturbance, and anxiety; Z66 Do not resuscitate; Z20.822 Contact with and (suspected) exposure to COVID-19; Z79.01 Long term (current) use of anticoagulants; Z79.899 Other long term (current) drug therapy; Z88.7 Allergy status to serum and vaccine; Z91.09 Other allergy status, other than to drugs and biological substances; Z86.718 Personal history of other venous thrombosis and embolism; Z99.3 Dependence on wheelchair; Z86.711 Personal history of pulmonary embolism; Y93.89 Activity, other specified; Y92.128 Other place in nursing home as the place of occurrence of the external cause; Y99.8 Other external cause status
CPT/HCPCS: 10102